=== PATIENT | female | born 1940 | race Caucasian/White ===

== ENCOUNTER → 2017-02-13 | Outpatient (CLI) | payer MEDICARE | END | disposition home or self-care (01) | LOC: MAMMO 09:40 | PROVIDERS: ATTEND Internal Medicine Nephrology | DX: Z12.31 Encounter for screening mammogram for malignant neoplasm of breast (principal); M81.0 Age-related osteoporosis without current pathological fracture; N28.1 Cyst of kidney, acquired | CPT/HCPCS: 76770; 77080; G0202 ==

== ENCOUNTER → 2017-02-19 | Outpatient (CLI) | payer MEDICARE, OTHER ==
[2017-02-19 15:18] LABS: ANION GAP 12; CALCIUM 8.7 mg/dL (8.5-10.1); CARBON DIOXIDE 29 mEq/L (21-32); CHLORIDE 100 mEq/L (98-107); INDEX HEMOLYSI 1 (1-3); INDEX ICTERIC 1 (1-4); INDEX LIPEMIC 1 (1-3); UREA NITROGEN BLOOD 13 mg/dL (7-21); eGFR > 60 mL/min (>60)
[2017-02-20 12:44] LABS: CLARITY URINE CLEAR (CLEAR); COLOR URINE YELLOW (YELLOW); GLUCOSE URINE NEGATIVE (NEGATIVE); KETONES URINE NEGATIVE (NEGATIVE); LEUKOCYTE ESTERASE URINE NEGATIVE (NEGATIVE); NITRITE URINE NEGATIVE (NEGATIVE); OCCULT BLOOD URINE NEGATIVE (NEGATIVE); PROTEIN URINE NEGATIVE (NEGATIVE); SPECIFIC GRAVITY URINE 1.008 (1.005-1.030); UROBILINOGEN URINE 0.2 E.U./dL (0.2-1.0)
== END | disposition home or self-care (01) ==
LOC: RAD 14:00
PROVIDERS: ATTEND Internal Medicine Nephrology
DX: N32.89 Other specified disorders of bladder (principal); R33.9 Retention of urine, unspecified; M71.22 Synovial cyst of popliteal space [Baker], left knee
CPT/HCPCS: 36415; 76857; 80048; 81003; 87086; 93970

== ENCOUNTER 2020-06-12 15:52 | Inpatient (IN) | payer MEDICARE, OTHER ==
[~2020-06-12] VITALS: Ht 160 cm; Wt 71.7 kg
[2020-06-12] MEDS ORDERED: DOCUSATE SODIUM 100MG CAPSULE PO PRN (16:15)
[2020-06-12] MEDS ORDERED: ENOXAPARIN 40MG/0.4ML SYR SUBCUT SCH (16:15)
[2020-06-12] MEDS ORDERED: ONDANSETRON HCL 4MG/2ML INJ IV PRN (16:15)
[2020-06-12] MEDS ORDERED: ACETAMINOPHEN 325MG TABLET PO PRN (16:15)
[2020-06-12] MEDS ORDERED: MORPHINE SULFATE 2 MG/ML CPJ (NOT FOR IM USE) IV PRN (16:15)
[2020-06-12] MEDS ORDERED: LORAZEPAM 2MG/ML CPJ IV ONE ×2 (17:45→18:00)
[2020-06-12 18:00] LABS: BASOPHILS % 0.6 % (0.0-2.0); EOSINOPHILS % 2.6 % (0.0-5.0); HEMOGLOBIN. 10.9 g/dL (12.0-16.0); LYMPHOCYTES % 22.2 % (20.0-50.0); MEAN CORPUSCULAR HEMOGLOBIN 31.2 pg (28.0-32.0); MEAN PLATELET VOLUME 9.6 fl (7.4-10.4); MONOCYTES % 9.8 % (2.0-8.0); NEUTROPHILS % 64.8 % (40.0-76.0); PLATELET 277 x1000/uL (130-400); RED BLOOD CELL COUNT 3.48 mill/uL (4.2-5.4); RED CELL DISTRIBUTION WIDTH 14.7 % (11.6-14.6)
[2020-06-12 18:06] LABS: CHLORIDE 98 mEq/L (98-107)
[2020-06-12] MEDS ORDERED: ASPIRIN 81MG TABLET PO NR (18:30)
[2020-06-12 19:03] LABS: CLARITY URINE CLEAR (CLEAR); COLOR URINE YELLOW (YELLOW); KETONES URINE NEGATIVE (NEGATIVE); LEUKOCYTE ESTERASE URINE NEGATIVE (NEGATIVE); NITRITE URINE NEGATIVE (NEGATIVE); OCCULT BLOOD URINE NEGATIVE (NEGATIVE); PROTEIN URINE NEGATIVE (NEGATIVE); SPECIFIC GRAVITY URINE 1.009 (1.005-1.030); UROBILINOGEN URINE 0.2 E.U./dL (0.2-1.0)
[2020-06-12 19:30] VITALS: BP 153/72
[2020-06-12 20:00] VITALS: BP 153/72
[2020-06-12] MEDS: METOPROLOL TARTRATE 25MG TABLET PO SCH (20:03)
[2020-06-12] MEDS: ENOXAPARIN 80MG/0.8ML SYR SUBCUT SCH (20:04)
[2020-06-12] MEDS ORDERED: ATORVASTATIN CALCIUM 10MG TABLET PO SCH (21:00)
[2020-06-12] MEDS: LORAZEPAM 0.5MG TABLET PO PRN (21:38)
[2020-06-12 22:00] VITALS: BP 135/91
[2020-06-13] VITALS (8 sets, daily range): BP systolic 107–154; BP diastolic 55–77
[2020-06-13 06:41] LABS: BASOPHILS % 0.7 % (0.0-2.0); EOSINOPHILS % 4.1 % (0.0-5.0); HEMATOCRIT. 35.2 % (36.0-48.0); HEMOGLOBIN. 11.9 g/dL (12.0-16.0); LYMPHOCYTES % 21.6 % (20.0-50.0); MEAN CORPUSCULAR HEMOGLOBIN 30.8 pg (28.0-32.0); MEAN CORPUSCULAR VOLUME 91.4 fL (81.0-99.0); NEUTROPHILS % 63.6 % (40.0-76.0); PLATELET 258 x1000/uL (130-400); RED BLOOD CELL COUNT 3.85 mill/uL (4.2-5.4); RED CELL DISTRIBUTION WIDTH 14.8 % (11.6-14.6)
[2020-06-13 06:43] LABS: INR 1.1; PROTHROMBIN TIME 11.1 sec (9.6-11.0)
[2020-06-13 06:46] LABS: CHLORIDE 101 mEq/L (98-107)
[2020-06-13 06:54] LABS: LDL CHOLESTEROL 70 mg/dL (5-100)
[2020-06-13 06:55] LABS: HDL CHOLESTEROL 53 mg/dL (40-59)
[2020-06-13] MEDS: ENOXAPARIN 80MG/0.8ML SYR SUBCUT SCH (08:31)
[2020-06-13] MEDS: METOPROLOL TARTRATE 25MG TABLET PO SCH (08:43)
[2020-06-13] MEDS ORDERED: REGADENOSON 0.4 MG/5 ML IV NR (09:00)
[2020-06-13] MEDS ORDERED: LEVOTHYROXINE SODIUM 50MCG TABLET PO SCH (09:15)
[2020-06-13] MEDS ORDERED: CLOPIDOGREL 75MG TABLET PO SCH (10:00)
[2020-06-13] MEDS ORDERED: REGADENOSON 0.4 MG/5 ML IV ONE (10:24)
[2020-06-13] MEDS ORDERED: ENALAPRIL 5MG TABLET PO SCH (11:00)
[2020-06-13] MEDS: LORAZEPAM 0.5MG TABLET PO PRN (12:20)
[2020-06-13] MEDS ORDERED: HYDROCHLOROTHIAZIDE 12.5MG CAPSULE PO SCH (13:00)
== END 2020-06-13 15:15 | disposition home or self-care (01) | DRG 206 ==
LOC: ER 15:52 → 3WST 17:43 → ENRESERV 18:13
PROVIDERS: ADMIT Specialist; ATTEND Specialist
DX: M94.0 Chondrocostal junction syndrome [Tietze] (principal); R07.89 Other chest pain; I10 Essential (primary) hypertension; E03.9 Hypothyroidism, unspecified; F41.9 Anxiety disorder, unspecified; E78.5 Hyperlipidemia, unspecified; I25.10 Atherosclerotic heart disease of native coronary artery without angina pectoris; Z95.5 Presence of coronary angioplasty implant and graft; Z79.899 Other long term (current) drug therapy
CPT/HCPCS: 36415; 71045; 78452; 80053; 80061; 81003; 83036; 83735; 83880; 84443; 84484; 85025; 93005; 93017; 93306; 93970; 96374; 99285; A9500; J1650; J2060; J2785